=== PATIENT | female | born 1955 | race Caucasian/White ===

== ENCOUNTER → 2017-03-13 | Outpatient (CLI) | payer MEDICARE | END | disposition home or self-care (01) | LOC: MERGE 11:17 → CFH 11:17 | PROVIDERS: ATTEND Genetic Counselor, MS | DX: Z12.31 Encounter for screening mammogram for malignant neoplasm of breast (principal); Z13.820 Encounter for screening for osteoporosis; M81.0 Age-related osteoporosis without current pathological fracture | CPT/HCPCS: 77080; G0202 ==

== ENCOUNTER → 2018-08-03 | Outpatient (CLI) | payer MEDICARE | END | disposition home or self-care (01) | LOC: CFH 10:23 | PROVIDERS: ATTEND Genetic Counselor, MS | DX: Z12.31 Encounter for screening mammogram for malignant neoplasm of breast (principal); M81.0 Age-related osteoporosis without current pathological fracture | CPT/HCPCS: 77063; 77080; 77067 ==

== ENCOUNTER → 2019-09-24 | Outpatient (CLI) | payer MEDICARE | END | disposition home or self-care (01) | LOC: STAR 15:27 | PROVIDERS: ATTEND Genetic Counselor, MS | DX: M54.16 Radiculopathy, lumbar region (principal) | CPT/HCPCS: 93005 ==

== ENCOUNTER → 2019-10-30 | Outpatient (CLI) | payer MEDICARE ==
[~2019-10-30] MED LIST: ASCO10004 PO; BUPIVACAINE 0.25% ONE; CALC600T4 PO; CHOL2000 PO; DULO30CA2 PO; EPINEPHRINE 1 MG/ML, 1ML ONE; ESTR0.3T PO; FISH1CAP PO; GENTAMICIN 80 MG/2 ML ONE; LOSA50TA14 PO; PREG200C PO; SIMV10TA3 PO; VANCOMYCIN 1,000 MG ONE; VITA1CAP PO
== END | disposition home or self-care (01) ==
LOC: STAR 13:40
PROVIDERS: ATTEND Obstetrics & Gynecology Female Pelvic Medicine and Reconstructive Surgery
DX: Z02.9 Encounter for administrative examinations, unspecified (principal)

== ENCOUNTER 2019-11-04 09:20 | Day surgery (SDC) | payer MEDICARE ==
[~2019-11-04] VITALS: Ht 162.6 cm; Wt 93.0 kg
[~2019-11-04 09:20] MED LIST changes: -BUPIVACAINE 0.25% ONE; -EPINEPHRINE 1 MG/ML, 1ML ONE; -GENTAMICIN 80 MG/2 ML ONE; -VANCOMYCIN 1,000 MG ONE
[2019-11-04] MEDS ORDERED: LACTATED RINGERS 1,000 ML IV SCH (10:14)
[2019-11-04] MEDS ORDERED: LIDOCAINE-MPF 1%, 2ML ONE (10:19)
[2019-11-04] MEDS ORDERED: LIDOCAINE-MPF 1%, 2ML INFIL ONE (10:30)
[2019-11-04] MEDS ORDERED: MIDAZOLAM 1 MG/ML, 2ML ONE ×2 (11:44→15:31)
[2019-11-04] MEDS ORDERED: FENTANYL PF 250 MCG/5ML ONE ×2 (11:44→15:31)
[2019-11-04] MEDS ORDERED: FENTANYL PF 100 MCG/2ML IV PRN (12:30)
[2019-11-04] MEDS ORDERED: hydrALAzine 20 MG/ML, 1ML IV PRN (12:30)
[2019-11-04] MEDS ORDERED: METHOCARBAMOL 1,000 MG in DEXTROSE 5% 100 ML IV PRN (12:30)
[2019-11-04] MEDS ORDERED: OXYcodone 5 MG/5 ML ORAL.SOL UDC PO PRN (12:30)
[2019-11-04] MEDS ORDERED: PROMETHAZINE 25 MG/ML, 1ML IV PRN (12:30)
[2019-11-04] MEDS ORDERED: HYDROmorphone 2 MG/ML, 1ML IVPush PRN (12:30)
[2019-11-04] MEDS ORDERED: MEPERIDINE/PF 25MG/ML,1ML IVPush PRN (12:30)
[2019-11-04] MEDS ORDERED: ACETAMINOPHEN 325 MG TABLET PO PRN (12:30)
[2019-11-04] MEDS ORDERED: SUGAMMADEX 200 MG/2 ML IVPush ONE (12:33)
[2019-11-04] MEDS ORDERED: EPINEPHRINE 1 MG/ML, 1ML ONE ×2 (12:50→12:58)
[2019-11-04] MEDS ORDERED: BUPIVACAINE 0.25% ONE (12:57)
[2019-11-04] MEDS ORDERED: GENTAMICIN 80 MG/2 ML ONE (12:57)
[2019-11-04] MEDS ORDERED: VANCOMYCIN 1,000 MG ONE (12:58)
[2019-11-04] MEDS ORDERED: OXYcodone 5 MG/5 ML ORAL.SOL UDC ONE (13:56)
[2019-11-04] MEDS ORDERED: ACETAMINOPHEN 650 MG/20.3 ML UDC ONE (13:56)
[2019-11-04] MEDS ORDERED: ROCURONIUM 10MG/ML,5ML ONE (17:14)
[2019-11-04] MEDS ORDERED: KETOROLAC 30 MG/1 ML ONE (17:14)
[2019-11-04] MEDS ORDERED: DEXAMETHASONE 4 MG/ML, 1ML ONE (17:14)
[2019-11-04] MEDS ORDERED: ONDANSETRON 2MG/ML, 2ML ONE (17:14)
[2019-11-04] MEDS ORDERED: PROPOFOL 10 MG/ML, 20ML ONE (17:14)
[2019-11-04] MEDS ORDERED: CEFOTETAN 2 GM ONE (17:14)
== END 2019-11-04 17:15 | disposition home or self-care (01) ==
LOC: OUT 09:20
PROVIDERS: ATTEND Obstetrics & Gynecology Female Pelvic Medicine and Reconstructive Surgery
DX: N99.3 Prolapse of vaginal vault after hysterectomy (principal); N39.46 Mixed incontinence; R10.2 Pelvic and perineal pain; I10 Essential (primary) hypertension; M19.90 Unspecified osteoarthritis, unspecified site; Z79.899 Other long term (current) drug therapy
CPT/HCPCS: 57265; 57282; 57288; C1771; J0171; J1100; J1580; J1885; J2250; J2405; J2704; J3010; J3370; J3490; J7120

== ENCOUNTER → 2019-11-08 | Outpatient (CLI) | payer MEDICARE ==
[~2019-11-08] MED LIST changes: +OMNIPAQUE 350 MG/ML, 100ML BOTTLE ONE
== END | disposition home or self-care (01) ==
LOC: RAD 16:00
PROVIDERS: ATTEND Genetic Counselor, MS
DX: J98.11 Atelectasis (principal)
CPT/HCPCS: 71275; Q9967

== ENCOUNTER → 2020-05-15 | Outpatient (CLI) | payer MEDICARE ==
[~2020-05-15] MED LIST changes: -OMNIPAQUE 350 MG/ML, 100ML BOTTLE ONE; +SIMV10TA18 PO; -SIMV10TA3 PO
== END | disposition home or self-care (01) ==
LOC: CFH 15:36
PROVIDERS: ATTEND Nurse Practitioner
DX: R06.02 Shortness of breath (principal)
CPT/HCPCS: 71250

== ENCOUNTER → 2020-08-14 | Outpatient (CLI) | payer MEDICARE ==
[~2020-08-14] MED LIST changes: +ASCO100018 PO; -ASCO10004 PO; -CALC600T4 PO; +CALC600T60 PO
== END | disposition home or self-care (01) ==
LOC: CFH 12:57
PROVIDERS: ATTEND Internal Medicine
DX: Z12.31 Encounter for screening mammogram for malignant neoplasm of breast (principal); R06.02 Shortness of breath
CPT/HCPCS: 77063; 77067; 78582; A9540; A9558